=== PATIENT | female | born 1995 | race Caucasian/White ===

== ENCOUNTER 2020-02-06 09:37 | Emergency (ER) | payer OTHER | END 2020-02-06 10:31 | disposition home or self-care (01) | LOC: JVIRT 09:37 | DX: Z11.59 Encounter for screening for other viral diseases (principal) | CPT/HCPCS: C9803; G2012-GT; Q3014-GT; U0003 ==

== ENCOUNTER 2022-05-13 10:38 | Day surgery (SDC) | payer OTHER ==
[2022-05-11 12:19] VITALS: BMI 27.4
[2022-05-13 12:59] VITALS: RESP 18
[2022-05-13 13:19] VITALS: BP 112/78; PULSE 80; TEMP 97.8
== END 2022-05-13 13:19 | disposition home or self-care (01) ==
LOC: FASU-ENDO 10:38
PROVIDERS: ATTEND Internal Medicine Gastroenterology
PROC: 0DB68ZX Excision of Stomach, Via Natural or Artificial Opening Endoscopic, Diagnostic (ICD-10-PCS; 2022-05-13)
PROC: 0DB48ZX Excision of Esophagogastric Junction, Via Natural or Artificial Opening Endoscopic, Diagnostic (ICD-10-PCS; 2022-05-13)
PROC: 0DB98ZX Excision of Duodenum, Via Natural or Artificial Opening Endoscopic, Diagnostic (ICD-10-PCS; principal; 2022-05-13 11:30)
DX: K29.50 Unspecified chronic gastritis without bleeding (principal); K21.00 Gastro-esophageal reflux disease with esophagitis, without bleeding; R10.13 Epigastric pain
CPT/HCPCS: 81025; 88305-TC; 88342-TC